=== PATIENT | male | born 1995 | race African-American/Black ===

== ENCOUNTER 2019-07-24 13:07 | Emergency (ER) | payer MEDICAID ==
[~2019-07-24] VITALS: Ht 172.7 cm; Wt 72.6 kg
--- NOTE | 2019-07-24 13:07 | NUR ---
Patient to ER bed 05 for evaluation. Side rails up.
--- NOTE | 2019-07-24 13:10 | NUR ---
ER Dr. Carrillo at bedside examining patient.
[2019-07-24 13:16] VITALS: BP_SYST 114
[2019-07-24 14:20] VITALS: BP_SYST 118
--- NOTE | 2019-07-24 14:20 | NUR ---
Patient given written and verbal discharge instructions and verbalizes understanding. ER MD Carrillo discussed with patient the results and treatment provided. Patient in stable condition. ID arm band removed. Rx of Motrin given. Patient educated on pain management and to follow up with PMD. Pain Scale 5. Opportunity for questions provided and answered. Medication side effect fact sheet provided.
== END 2019-07-24 14:20 | disposition home or self-care (01) ==
LOC: SED 13:07
DX: S62.316A Displaced fracture of base of fifth metacarpal bone, right hand, initial encounter for closed fracture (principal); X58.XXXA Exposure to other specified factors, initial encounter; Y93.61 Activity, american tackle football; Y92.89 Other specified places as the place of occurrence of the external cause; Y99.8 Other external cause status
CPT/HCPCS: 99283